=== PATIENT | female | born 1990 | race Caucasian/White ===

== ENCOUNTER 2017-10-09 20:37 | Emergency (ER) | payer OTHER ==
[2017-10-09] MEDS ORDERED: ONDANSETRON 4 MG/2 ML VIAL IVP ONE (21:13)
[2017-10-09] MEDS ORDERED: NS 1,000 ML IV ONE (21:13)
--- NOTE | 2017-10-09 21:23 | EDPHY ---
H & P Stated Complaint: RLQ PAIN SINCE YESTERDAY, WORSE WITH URINATING DENIES N,V D OR FEVER - Personal History LMP (Females 10-55): 8-14 Days Ago Current Tetanus/Diphtheria Vaccine: Yes Current Tetanus Diphtheria and Acellular Pertussis (TDAP): Yes - Medical/Surgical History Hx Asthma: No Hx Chronic Respiratory Disease: No Hx Diabetes: No Hx Cardiac Disease: No Hx Renal Disease: No Hx Cirrhosis: No Hx Alcoholism: No Hx HIV/AIDS: No Hx Splenectomy or Spleen Trauma: No Other PMH: DENIES - Social History Smoking Status: Current every day smoker Time Seen by Provider: 10/09/17 21:06 HPI/ROS: Chief Complaint: Abdominal pain HPI: 27-year-old woman with a history of mittelschmerz presenting with right lower abdominal pain which started yesterday. Pain got significantly worse today. At worst about a 9/10, currently is a 7/10 after taking 2 Advil. Some nausea but no vomiting. No diarrhea. Does the right lower abdomen. She has had multiple episodes of similar pain but not nearly as severe in the past. Is always in the right hand side and alternates with every other menstrual cycle. Patient states her last menstrual period was 2 weeks ago and she should be ovulating at this time. Does have some pressure with urinating but no burning or frequency. Has not been sexually active for over a month. Has never been . Has never had a sexually transmitted disease. ROS: 10 point Review of Systems is negative except as noted in the HPI. PMH: Mittelschmerz Social History: No smoking, occasional alcohol, no recreational drug use Family History: non-contributory Physical Exam: Gen: Awake, Alert, No Distress HEENT: Nose: no rhinorrhea Eyes: PERRLA, EOMI Mouth: Moist mucosa Neck: Supple, no JVD Chest: nontender, lungs clear to auscultation Heart: S1, S2 normal, no murmur Abd: Soft, right adnexal tenderness greater than right low lower quadrant tenderness with voluntary guarding Back: no CVA tenderness, no midline tenderness Ext: no edema, non-tender Skin: no rash Neuro: CN II-XII intact, Sensation grossly intact, Strength 5/5 in bilateral upper and lower extremities (Zia Echevarria) Constitutional: Initial Vital Signs Temperature (C) 37.0 C 10/09/17 20:48 Heart Rate 85 10/09/17 20:48 Respiratory Rate 18 10/09/17 20:48 Blood Pressure 146/76 H 10/09/17 20:48 O2 Sat (%) 96 10/09/17 20:48 O2 Delivery Mode Room Air O2 (L/minute) 2 Allergies/Adverse Reactions: cephalexin [Cephalexin] Allergy (Verified 10/09/17 20:51) ZPACK Allergy (Uncoded 10/09/17 20:51) Home Medications: Medication Instructions Recorded Lorazepam 06/08/13 Medical Decision Making - Diagnostics Imaging Results: Imaging Impressions Abdomen Ultrasound 10/09/17 21:13 Impression: Nonvisualized appendix. Small amount of nonspecific free fluid. Results called to Dr. Echevarria. Ultrasound interpreted by Dr. Shannon. Appendix not visualized. Pelvic ultrasound shows normal uterus and ovaries. There is small amount of free fluid. (Zia Echevarria) ED Course/Re-evaluation: 27-year-old presenting with right adnexal pain with a history of medicine worse in the past. This is much worse than normal. Findings concerning for torsion. Will obtain ultrasound of her pelvis. She also some right lower quadrant tenderness. Will obtain lab work and ultrasound to evaluate possible torsion, ovarian cyst, or appendicitis. Appendix not visualized on ultrasound. Uterus and ovaries normal. Patient's pain is worsened after ultrasound. Will give Toradol here. Patient signed out to Dr. Broderick pending improvement in pain and reassessment. (Zia Echevarria) 11:37 p.m.- Patient is feeling much improved after receiving Toradol and now rates pain at a 3/10 from an 8/10. Her abdominal exam is benign. She will be discharged home. I have given her instructions to take NSAIDs until she is feeling better and follow up with her OBGYN. (Val Broderick) - Data Points Laboratory Results: Laboratory Results 10/09/17 21:23 10/09/17 21:23 10/09/17 10/09/17 10/09/17 21:23 21:23 21:00 WBC 8.66 10^3/uL 10^3/uL (3.80-9.50) RBC 4.20 10^6/uL 10^6/uL (4.18-5.33) Hgb 13.4 g/dL g/dL (12.6-16.3) Hct 38.0 % % (38.0-47.0) MCV 90.5 fL fL (81.5-99.8) MCH 31.9 pg pg (27.9-34.1) MCHC 35.3 g/dL g/dL (32.4-36.7) RDW 12.9 % % (11.5-15.2) Plt Count 289 10^3/uL 10^3/uL (150-400) MPV 9.2 fL fL (8.7-11.7) Neut % (Auto) 62.4 % % (39.3-74.2) Lymph % (Auto) 28.5 % % (15.0-45.0) [place] % (Auto) 7.4 % % (4.5-13.0) Eos % (Auto) 1.2 % % (0.6-7.6) Baso % (Auto) 0.3 % % (0.3-1.7) Nucleat RBC Rel Count 0.0 % % (0.0-0.2) Absolute Neuts (auto) 5.40 10^3/uL 10^3/uL (1.70-6.50) Absolute Lymphs (auto) 2.47 10^3/uL 10^3/uL (1.00-3.00) Absolute Monos (auto) 0.64 10^3/uL 10^3/uL (0.30-0.80) Absolute Eos (auto) 0.10 10^3/uL 10^3/uL (0.03-0.40) Absolute Basos (auto) 0.03 10^3/uL 10^3/uL (0.02-0.10) Absolute Nucleated RBC 0.00 10^3/uL 10^3/uL (0-0.01) Immature Gran % 0.2 % % (0.0-1.1) Immature Gran # 0.02 10^3/uL 10^3/uL (0.00-0.10) Sodium 139 mEq/L mEq/L (134-144) Potassium 4.2 mEq/L mEq/L (3.5-5.2) Chloride 101 mEq/L mEq/L (97-110) Carbon Dioxide 25 mEq/l mEq/l (22-31) Anion Gap 13 mEq/L mEq/L (8-16) BUN 11 mg/dL mg/dL (7-23) Creatinine 0.9 mg/dL mg/dL (0.6-1.0) Estimated GFR > 60 Glucose 81 mg/dL mg/dL (70-100) Calcium 9.5 mg/dL mg/dL (8.5-10.4) Total Bilirubin 0.4 mg/dL mg/dL (0.1-1.4) AST 31 IU/L IU/L (14-46) ALT 32 IU/L IU/L (9-52) Alkaline Phosphatase 65 IU/L IU/L (38-126) Total Protein 7.3 g/dL g/dL (6.3-8.2) Albumin 4.2 g/dL g/dL (3.5-5.0) Lipase 168 IU/L IU/L (23-300) Urine Color PALE YELLOW Urine Appearance CLEAR Urine pH 6.0 (5.0-7.5) Ur Specific [place] 1.004 (1.002-1.030) Urine Protein NEGATIVE (NEGATIVE) Urine Ketones NEGATIVE (NEGATIVE) Urine Blood NEGATIVE (NEGATIVE) Urine Nitrate NEGATIVE (NEGATIVE) Urine Bilirubin NEGATIVE (NEGATIVE) Urine Urobilinogen NEGATIVE EU EU (0.2-1.0) Ur Leukocyte Esterase NEGATIVE (NEGATIVE) Urine RBC NONE SEEN /hpf /hpf (0-3) Urine WBC 1-3 /hpf /hpf (0-3) Ur Epithelial Cells TRACE /lpf /lpf (NONE-1+) Urine Bacteria 3+ /hpf H /hpf (NONE SEEN) Urine Mucus TRACE /lpf /lpf (NONE-1+) Urine Glucose NEGATIVE (NEGATIVE) Medications Given: Discontinued Medications Sodium Chloride (Ns) 1,000 mls @ 0 mls/hr IV ONCE ONE; Wide Open PRN Reason: Protocol Stop: 10/09/17 21:14 Last Admin: 10/09/17 21:25 Dose: 1,000 mls Ketorolac Tromethamine (Toradol) 15 mg IVP EDNOW ONE Stop: 10/09/17 22:46 Last Admin: 10/09/17 22:46 Dose: 15 mg Morphine Sulfate (Morphine) 4 mg IVP ONCE ONE Stop: 10/09/17 21:14 Last Admin: 10/09/17 21:26 Dose: 4 mg Ondansetron HCl (Zofran) 4 mg IVP EDNOW ONE Stop: 10/09/17 21:14 Last Admin: 10/09/17 21:26 Dose: 4 mg Departure - Departure Disposition: Home, Routine, Self-Care Clinical Impression: Right lower quadrant pain Condition: Good Instructions: Maryann (ED), Acute Abdominal Pain (ED) Additional Instructions: Your pain could have been caused by an ovarian cyst which opened and caused some bleeding. Because of this, I recommend you take ibuprofen 400 mg every 6 hr as needed for pain. You can also use a heat pack or an ice pack. The pain should really be better in 1 day and if it is not I do recommend you follow up with your OBGYN doctor. Referrals: Joslyn Vines MD [Primary Care Provider] - As per Instructions
[2017-10-09 21:30] LABS: PLATELET COUNT 289 10^3/uL (150-400)
[2017-10-09] MEDS ORDERED: KETOROLAC 15 MG/1 ML SDV IVP ONE (22:45)
[2017-10-09] MEDS ORDERED: KETOROLAC 15 MG/1 ML SDV ONE (22:45)
[2017-10-09 23:09] VITALS: BP 106/60; PULSE 80; O2SAT 93
[2017-10-09 23:38] VITALS: RESP 17; TEMP 98.4
== END 2017-10-09 23:46 | disposition home or self-care (01) ==
DX: R10.31 Right lower quadrant pain (principal); F17.200 Nicotine dependence, unspecified, uncomplicated; E86.9 Volume depletion, unspecified
CPT/HCPCS: 96374; J1885; J2405

== ENCOUNTER → 2018-02-09 | Outpatient (CLI) | payer OTHER | LOC: BMCIMAGING 09:36 | PROVIDERS: ATTEND Internal Medicine | DX: R22.2 Localized swelling, mass and lump, trunk (principal) ==

== ENCOUNTER → 2018-07-17 | Outpatient (CLI) | payer OTHER | LOC: FIMAGING 12:42 | DX: M25.562 Pain in left knee (principal); M54.5 Low back pain ==